=== PATIENT | female | born 1975 | race Caucasian/White ===

== ENCOUNTER 2024-05-21 07:36 | Emergency (ER) | payer OTHER, SELFPAY ==
[2024-05-21 07:38] VITALS: BP 180/98
[2024-05-21 07:58] VITALS: BMI 21.2
--- NOTE | 2024-05-21 08:34 | ED.GENMED ---
History of Present Illness
General
Chief Complaint: Musculo-Skeletal Complaint
Source: patient
Exam Limitations: none
Time Seen by Provider: 05/21/24 08:09
Nursing documentation reviewed up to this point in time: agreed with
History of Present Illness
History of Present Illness:
Patient is a 48-year-old female who presents to the ER for evaluation of neck pain. Patient has had a sore neck for the past 2 weeks she was not sure if she pulled her neck or working out. She does exercise and lift weights etc. This morning she
stretched in bed and felt a popping sensation in her neck and felt pain in her upper back wrapping around to her chest. She reports that she feels sore to take a deep breath. She denies any shortness of breath. She does have pain when she moves
her neck.
She denies any recent illness fever chills infectious symptoms. She denies any headache sore throat URI symptoms.
Phy Exam
General Physical Exam
General Presentation: no apparent distress
General age: appears stated age
General Skin: warm and dry
General Habitus: normal
General Mental: alert
General Hydration: appears well hydrated
Cardiovascular Exam
Cardiovascular Exam: regular rate/rhythm, no murmur and normal peripheral pulses
Pulmonary Exam
Pulmonary Exam: lungs clear and no respiratory distress
Neurological Exam
Neurological Exam: alert, oriented x3, no motor deficits and no sensory deficits
Musculoskeletal Exam
Musculoskeletal Exam: other (No bony cervical spine tenderness patient is tender throughout the paracervical muscles and upper trapezius; patient has increased comfort with movement of neck right to left and looking up)
Course
Orders/Labs/Results
Orders:
Orders
05/21/24 08:33
Acetaminophen [Tylenol] 1,000 mg PO NOW STA
Dexamethasone Pf [Decadron] 10 mg PO NOW STA
05/21/24 08:34
diazePAM [Valium Injection] 5 mg IM NOW STA
05/21/24 09:30
CT Cervical Spine W/o Iv Contr Urgent
Comment:
Reason For Exam: pain
Vital Signs
Initial and Last Documented VS:
Initial Vital Signs
Temp Pulse Resp BP Pulse Ox
98.8 F 66 18 180/98 100
05/21/24 07:38 05/21/24 07:38 05/21/24 07:38 05/21/24 07:38 05/21/24 07:38
Last Documented Vital Signs
Temp Pulse Resp BP Pulse Ox
98.8 F 65 18 180/85 100
05/21/24 07:38 05/21/24 11:33 05/21/24 11:33 05/21/24 11:33 05/21/24 11:33
MDM/Problems Addressed
MDM/Problems Addressed:
Symptoms are consistent with torticollis muscle strain. Patient is in no acute distress no meningismus no neurological deficits good strength and sensation to bilateral upper extremities. Patient received Valium here and feeling much better. CT
cervical spine with no acute findings. Will DC with Valium along with ibuprofen and Tylenol ice and heat with close outpatient follow family doctor and Ortho if needed
*Critical Care Note
Total Time (30-74mins, 75-104mins- exclusive of procedures): Not Applicable
ED Attending Note
-
Portions of this chart may have been created with voice recognition software.� Occasional wrong word or��sound alike� substitutions may have occurred due to the inherent limitations of voice recognition software.
Discharge Plan
Departure
Patient Disposition: Home (Routine Discharge)
Date of Disposition: 05/21/24
Time of Disposition: 11:22
Patient with high blood pressure during this ER visit?: Yes
Covid-19: Not Applicable
Discharge Problem:
Acquired torticollis, Cervical muscle strain
Instructions: Torticollis (DC), Muscle Strain ED, BLOOD PRESSURE
Prescriptions:
New
diazepam [Valium] 5 mg tablet
5 mg PO TID PRN (Reason: muscle spasm) Qty: 10 0RF
Referrals:
Tenthoff,Sharon Arnold MD [Family Provider] -
Stand Alone Forms: Return to Work
Activity Restrictions/Additional Instructions:
As discussed continue to alternate between ibuprofen and Tylenol.
Ice affected area for the next 24 hours 20 minutes at a time several times a day followed by warm moist heat.
A prescription for Valium(muscle laxer) was sent to your pharmacy. Take only as directed every 8 hours as needed for muscle spasm soreness. This medication will cause drowsiness. No driving or drink alcohol while taking this medication.
Follow-up with your family doctor the next several days and orthopedics if needed.
Also as discussed please follow with your family doctor for further findings on your CAT scan including thyroid nodules that will need outpatient follow up and imaging (Ultrasound )
Interventions
Interventions:
*Risk Screen - Suicide Last Done: 05/21/24 07:38
*General Assessment Last Done: 05/21/24 07:38
*Neglect/Abuse Screening Last Done: 05/21/24 07:38
*ED- Fall Risk Assessment Last Done: 05/21/24 07:58
*ED COVID-19 Vaccine History Last Done: 05/21/24 07:58
*Nursing Disposition Last Done: 05/21/24 11:34
ED-Musculoskeletal Assessment Last Done: 05/21/24 07:58
Discharge Date and Time
Discharge Date/Time: 05/21/24 11:34
Print Language: [place]
[2024-05-21] MEDS: TYLENOL 1000 MG PO (08:44)
[2024-05-21] MEDS: VALIUM INJECTION 5 MG IM (08:44)
[2024-05-21] MEDS: DECADRON 10 MG PO (08:44)
[2024-05-21 11:33] VITALS: BP 180/85
== END 2024-05-21 11:34 | disposition home or self-care (01) ==
LOC: EMR 07:36
PROVIDERS: EMERGENCY PHYSICIAN Emergency Medicine; FAMILY PHYSICIAN Family Medicine
DX: M43.6 Torticollis (principal); S16.1XXA Strain of muscle, fascia and tendon at neck level, initial encounter; X58.XXXA Exposure to other specified factors, initial encounter
CPT/HCPCS: 99284; 96372; 72125